=== PATIENT | male | born 1965 | race Caucasian/White ===

== ENCOUNTER 2017-01-30 08:51 | Emergency (ER) | payer OTHER ==
[2017-01-30 08:57] VITALS: BP 157/96; TEMP 98.4; BMI 37.7
--- NOTE | 2017-01-30 09:32 | DI ---
EXAM: Right knee four views HISTORY: Acute sharp pain with chronic discomfort COMPARISON: None FINDINGS: No fracture or dislocation. Small tricompartmental osteophytes. The medial, lateral, and patellofemoral compartments are normal in height. No joint effusion. IMPERSSION: 1. No fracture or dislocation. 2. Mild tricompartmental osteoarthritis.
--- NOTE | 2017-01-30 09:39 | ED.PDOC ---
General ED Provider: Dr. SUSANNE POLANCO JR Chief Complaint: Knee Pain/Injury Stated Complaint: patient states he has been having problems with right knee for months but this morning when he was stepping up into a tractor he felt a pop behind the knee and pain is worse. [ End ]98.4 78 20 94% 157/96 06/06. states he stepped up onto a tractor and felt a pop behind the right knee. [ End ]jered haddad. diabetes. No: patient states he drinks a couple beers everyday Time Seen by Physician: 09:39 Mode of Arrival: Walk-In Information Source: Patient Exam Limitations: No limitations Primary Care Provider: RADHA ROSS Nursing and Triage Documentation Reviewed and Agree: No Review of Systems - Review Of Systems Constitutional: Reports: Weakness Eyes: Reports: No symptoms Ears, Nose, Mouth, Throat: Reports: No symptoms Respiratory: Reports: No symptoms Cardiac: Reports: No symptoms GI: Reports: No symptoms : Reports: No symptoms Musculoskeletal: Reports: Joint pain Skin: Reports: No symptoms Neurological: Reports: No symptoms Endocrine: Reports: No symptoms Hematologic/Lymphatic: Reports: No symptoms All Other Systems: Other Past Medical History - Past Medical History Endocrine: Reports: DM 2 Cardiovascular: Reports: Unknown Respiratory: Reports: Unknown Hematological: Reports: Unknown Gastrointestinal: Reports: Unknown Genitourinary: Reports: Unknown Neuro/Psych: Reports: Unknown Musculoskeletal: Reports: Joint Pain Cancer: Reports: Unknown - Surgical History General Surgical History: Reports: Unknown - Family History Family History: Reports: Unknown - Social History Smoking Status: Current every day smoker Hx Substance Use: No (patient states he drinks a couple beers everyday) Alcohol Screening: Occasionally Physical Exam - Physical Exam Appearance: Well-appearing, Obese Pain Distress: Severe Musculoskeletal: Normal strength, Limited ROM (right knee with rlateral meniscal signs edema interferes with exam very tender) Critical Care Note - Critical Care Note Total Time (mins): 0 Course - Course Orders, Labs, Meds: Orders Category Date Time Status CRUTCHES [ED CRUTCHES] .ONCE EMERGENCY 01/30/17 09:40 Active Knee immobilizer [ED SPLINT APPLICATION] .ONCE EMERGENCY 01/30/17 09:40 Active Ketorolac Tromethamine [Toradol] MEDS 01/30/17 10:25 Discontinued 60 mg IM ONCE STA KNEE, RIGHT 4 VIEWS Stat RADS 01/30/17 09:02 Completed Medications Discontinued Medications Generic Name Dose Route Start Last Admin Trade Name Dave PRN Reason Stop Dose Admin Ketorolac Tromethamine 60 mg 01/30/17 10:25 01/30/17 10:32 Toradol IM 01/30/17 10:26 60 mg ONCE STA Administration Vital Signs: Temp Pulse Resp BP Pulse Ox 01/30/17 08:51 98.4 F 78 20 157/96 H 94 L Departure - Departure Time of Disposition: 10:26 Disposition: HOME SELF-CARE Discharge Problem: Lateral meniscus tear, current Instructions: Meniscus Tear (ED) Condition: Good Pt referred to PMD for follow-up: Yes Additional Instructions: crutches for one week no weight right leg follow up PMD discuss MRI right knee and orthopedic referral for suspected meniscus tear Toradol for pain may use [place] as prescribed will need work comp forms today Prescriptions: Ketorolac Tromethamine [Toradol] 10 mg PO QID PRN #20 tablet PRN Reason: PAIN Allergies/Adverse Reactions: Allergies No Known Allergies Allergy (Unverified 01/30/17 08:56) Home Medications: Ambulatory Orders Ketorolac Tromethamine [Toradol] 10 mg PO QID PRN #20 tablet 01/30/17 Transfer Form Completed: No Disposition Discussed With: Patient
[2017-01-30] MEDS ORDERED: TORADOL IM STA (10:25)
== END 2017-01-30 11:00 | disposition home or self-care (01) ==
LOC: ED 08:51
DX: S83.281A Other tear of lateral meniscus, current injury, right knee, initial encounter (principal); F17.210 Nicotine dependence, cigarettes, uncomplicated; X50.1XXA Overexertion from prolonged static or awkward postures, initial encounter
CPT/HCPCS: 96372; 99283